=== PATIENT | female | born 1970 | race Hispanic/Latino ===

== ENCOUNTER 2018-12-14 11:47 | Emergency (ER) | payer SELFPAY | END 2018-12-14 12:23 | disposition home or self-care (01) | LOC: EDH 11:47 | DX: K14.8 Other diseases of tongue (principal); E07.9 Disorder of thyroid, unspecified | CPT/HCPCS: 99281 ==

== ENCOUNTER → 2025-01-20 | Outpatient (CLI) | payer OTHER ==
--- NOTE | 2025-01-20 15:38 | HMCIMG ---
LUMBAR SPINE RADIOGRAPHS - 2-3 VIEWS INDICATION: Flow back pain COMPARISON: None FINDINGS: AP, lateral, and coned-down lateral views. Normal lordotic curvature of the lumbar spine is maintained. Five nonrib-bearing lumbar vertebral bodies are noted. No acute fracture or subluxation identified. Vertebral body heights are well-maintained. Disc spaces are well-preserved. Multilevel mild anterior endplate osteophytic spurring. IMPRESSION: No fracture or subluxation identified.
--- NOTE | 2025-01-20 15:39 | HMCIMG ---
LEFT SHOULDER RADIOGRAPHS - 2-3 VIEWS INDICATION: Pain COMPARISON: None FINDINGS: No evidence for acute fracture or dislocation. Acromioclavicular and glenohumeral alignments are well maintained. Visible portions of the left clavicle are intact. Mild lateral arch outlet narrowing. IMPRESSION: Possible mild external impingement.
== END | disposition home or self-care (01) ==
LOC: RAH 14:38
PROVIDERS: ATTEND Internal Medicine
DX: M25.78 Osteophyte, vertebrae (principal); M25.512 Pain in left shoulder; M54.50 Low back pain, unspecified; M47.816 Spondylosis without myelopathy or radiculopathy, lumbar region
CPT/HCPCS: 72100; 73030

== ENCOUNTER 2025-05-17 10:04 | Emergency (ER) | payer BC, MEDICAID ==
[~2025-05-17] VITALS: Ht 157.5 cm; Wt 72.6 kg
--- NOTE | 2025-05-17 10:14 | ERN ---
ED Note History of Present Illness Stated Complaint: CHEST PAIN Chief Complaint: Chest Pain Time Seen by MD: 10:06 Dictation: PATIENT IS A 54-YEAR-OLD FEMALE HERE WITH LEFT POSTERIOR SHOULDER PAIN THAT SHE HAS HAD FOR QUITE A LONG TIME. THAT RADIATES TO HER CHEST. SHE HAS HAD NO SHORTNESS A BREATH NO JAW PAIN NO ARM PAIN NO NAUSEA NO VOMITING. HAS BEEN HERE ONCE BEFORE FOR THE SAME COMPLAINT AND WAS WORKED UP. SHE DID NOT GO SEE HER PRIMARY CARE Allergies: Coded Allergies: No Known Drug Allergies (Unverified Allergy, Unknown, 05/17/25) Past Medical History History: Not Applicable RN Note Reviewed/Agreed w/PFSH: Yes Review of System Dictation CONSTITUTIONAL: NEGATIVE EXCEPT FOR HPI HEAD/FACE: NEGATIVE EXCEPT FOR HPI EENT: NEGATIVE EXCEPT FOR HPI RESPIRATORY: NEGATIVE EXCEPT FOR HPI GASTROINTESTINAL/ABDOMINAL: NEGATIVE EXCEPT FOR HPI GENITOURINARY: NEGATIVE EXCEPT FOR HPI MUSCULOSKELETAL: NEGATIVE EXCEPT FOR HPI LEFT POSTERIOR SHOULDER PAIN THAT RADIATES TO CHEST INTEGUMENTARY: NEGATIVE EXCEPT FOR HPI NEUROLOGICAL/PSYCH: NEGATIVE EXCEPT FOR HPI HEMATOLOGIC/LYMPHATIC: NEGATIVE EXCEPT FOR HPI ALL SYSTEMS NEGATIVE, EXCEPT NOTED ABOVE. 13 POINT REVIEW OF SYSTEMS ASSESSED AND ALL NEGATIVE EXCEPT FOR ABOVE. Initial Vital Sign VS Vital Signs Date Time Temp Pulse Resp B/P (MAP) Pulse Ox O2 Delivery O2 Flow Rate FiO2 05/17/25 10:13 97.2 78 18 144/83 97 Room Air 0 Physical Exam Dictation VITAL SIGNS REVIEWED GENERAL APPEARANCE: ALERT, ORIENTED X 3, MILD ACUTE DISTRESS, WELL DEVELOPED, NOURISHED. HEAD AND FACE: NON-TRAUMATIC. EYES: PERRL, PINK CONJUNCTIVAS, EYELID NO TRAUMA, ANTERIOR CHAMBER WITH ARCUS SENILIS. EARS: PINNAS INTACT AND NO SIGNS OF TRAUMA OR ERYTHEMA EAR CANALS CLEAR AND NO DISCHARGE TM NO ERYTHEMA NOSE: NO DISCHARGE, NO BLEEDING. OROPHARYNX: MOUTH NORMAL, TONGUE PINK, PHARYNX CLEAR,NO ERYTHEMA, TONSILS NO EXUDATES, NO ABSCESSES NOTED, MUCOUS MEMBRANE MOIST NECK: SUPPLE, NON-TENDER, NO THYROMEGALY, NO MASSES, NO JVD, NO BRUITS BREAST:DEFERRED CHEST:NO TENDERNESS, NO CREPITUS, NO PARADOXICAL MOVEMENT, NO RETRACTIONS LUNGS:CLEAR, WELL-VENTILATED, SYMMETRIC, NO RALES, NO WHEEZING, NO RHONCHI, NO STRIDOR, GOOD BREATH SOUNDS BILATERALLY HEART: REGULAR RATE, REGULAR RHYTHM, NO MURMUR, NO GALLOPS VASCULAR: NO PERIPHERAL EDEMA, ABDOMEN: SOFT, POSITIVE BOWEL SOUNDS, NONDISTENDED, NO GUARDING, NONTENDER, NO REBOUND, NO MASSES NO HEPATOMEGALY, NO SPLENOMEGALY, NO JOYA'S SIGN, NO HERNIAS. RECTAL: DEFERRED GENITAL: DEFERRED NEUROLOGICAL: NORMAL SPEECH, MOTOR FUNCTION INTACT, SENSORY FUNCTION INTACT MUSCULOSKELETAL: NECK NONTENDER, FULL RANGE OF MOTION, BACK NONTENDER, FULL RANGE OF MOTION, EXTREMITIES: POSTERIOR LEFT SHOULDER PAIN TENDERNESS WITH PALPATION WITH DECREASED RANGE OF MOTION SECONDARY TO PAIN. DISTAL NEUROVASCULAR CMS INTACT. SKIN: COLOR PINK, DRY, NO TURGOR, NO RASH, NO LACERATIONS, NO ABRASIONS, NO CONTUSIONS. LYMPHATIC: DEFERRED Results (Laboratory/Radiology) Laboratory/Radiology Laboratory Tests Test 05/17/25 10:22 White Blood Count 4.5 K/uL (4.8-10.8) L Red Blood Count 4.56 MIL/uL (4.00-5.50) Hemoglobin 13.4 g/dL (12.0-16.0) Hematocrit 40.5 % (36-48) Mean Corpuscular Volume 88.8 fL (79-99) Mean Corpuscular Hemoglobin 29.4 pg (27.0-33.0) Mean Corpuscular Hemoglobin Concent 33.1 g/dL (32.0-36.0) Red Cell Distribution Width 13.6 % (11.0-15.5) Platelet Count 151 K/uL (130-400) Mean Platelet Volume 12.6 fL (7.5-10.5) H Immature Granulocyte % (Auto) 0.2 % (0-1) Neutrophils (%) (Auto) 53.2 % (40.0-77.0) Lymphocytes (%) (Auto) 38.4 % (21.0-51.0) Monocytes (%) (Auto) 6.2 % (3.0-13.0) Eosinophils (%) (Auto) 1.8 % (0.0-8.0) Basophils (%) (Auto) 0.2 % (0.0-5.0) Neutrophils # (Auto) 2.4 K/uL (1.8-7.7) Lymphocytes # (Auto) 1.7 K/uL (1.0-4.8) Monocytes # (Auto) 0.3 K/uL (0.1-1.0) Eosinophils # (Auto) 0.08 K/uL (0.00-0.70) Basophils # (Auto) 0.01 K/uL (0.00-0.20) Absolute Immature Granulocyte (auto 0.01 K/uL (0-1) Nucleated Red Blood Cells 0.0 % (0.0-0.19) Sodium Level 144 mmol/L (136-145) Potassium Level 3.8 mmol/L (3.5-5.1) Chloride Level 105 mmol/L (101-111) Carbon Dioxide Level 26 mmol/L (21-32) Blood Urea Nitrogen 12 mg/dL (7-18) Creatinine 0.5 mg/dL (0.5-1.0) Glomerular Filtration Rate Calc 111 mL/min (>90) Random Glucose 111 mg/dL (70-105) H Total Calcium 9.2 mg/dL (8.5-10.1) Troponin I High Sensitivity < 4 ng/L (4-50) L Labs Reviewed?: Yes EKG Comment: EKG NORMAL SINUS RHYTHM/HEART RATE 77/AXIS NORMAL/NO ECTOPY ED Course ED Course Orders Procedure Category Date Status Time 12 Lead Ekg Tracing- EKG 05/17/25 Logged Technical 10:11 Ketorolac 60mg/2ml PHA 05/17/25 Complete (Toradol 60mg/2ml) 10:30 Cyclobenzaprine Hcl PHA 05/17/25 Complete (Cyclobenzaprine Hcl 10:30 Cbc With Differential LAB 05/17/25 Complete 10:26 Basic Metabolic Panel LAB 05/17/25 Complete 10:26 Troponin I High LAB 05/17/25 Complete Sensitivity 10:26 Current Medications Medications (Trade) Dose Ordered Sig/Yumi Route PRN Reason Start Time Stop Time Status Last Admin Dose Admin Cyclobenzaprine HCl (Cyclobenzaprine HCl) 10 mg ONCE ONCE PO 05/17/25 10:30 05/17/25 10:31 DC Ketorolac Tromethamine (toRADol 60MG/ 2ML) 60 mg ONCE ONCE IM 05/17/25 10:30 05/17/25 10:31 DC Vital Signs Date Time Temp Pulse Resp B/P (MAP) Pulse Ox O2 Delivery O2 Flow Rate FiO2 05/17/25 10:13 97.2 78 18 144/83 97 Room Air 0 1055/NO IMAGING INDICATED PATIENT WAS ALREADY IMAGED ON 01/20/2025 AND IMPINGEMENT WAS FOUND TO THE LEFT SHOULDER. SHE HAS NOT FOLLOWED UP WITH HER PRIMARY CARE DOCTOR SINCE HER LAST ER VISIT. CARDIAC WORKUP UNREMARKABLE HEART Score Response (Comments) Value History: Low suspicion (0) 0 Age: 45-65yrs (+1) 1 Risk Factors: 1-2 risk factors (+1) 1 Initial Troponin: Normal limit (0) 0 Total 2 Medical Decision Making MDM MEDICAL DECISION-MAKING BASED ON CARDIAC WORKUP. PATIENT HAS ALREADY BEEN IMAGED ON 01/20/2025 FOR LEFT SHOULDER PAIN THAT IS CHRONIC, X-RAY DEMONSTRATES IMPINGEMENT AND PATIENT STATES SHE IS NOT FOLLOW UP WITH HER DOCTOR OR ORTHOPEDIC SINCE THE LAST VISIT TO THE EMERGENCY ROOM. WE WILL DISCHARGE PATIENT HOME WITH IBUPROFEN AND SHE WILL BE PROVIDED THE NAME OF DR. PALOMARES DX & DISP Disposition: Discharge Departure Impression: Primary Impression: Impingement of left shoulder Condition: Stable Scripts Ibuprofen (Ibuprofen 800 mg Tab) 800 Mg Tab 800 MG PO Q8H PRN for fever or pain, #30 TAB 0 Refills Prov: BANDAR RAIN NP 05/17/25 Additional Instructions: FOLLOW-UP WITH PRIMARY CARE PROVIDER IN 1 TO 2 DAYS. TAKE MEDICATIONS DIRECTED HERE IN THE EMERGENCY ROOM. OKAY TO CONTINUE HOME MEDICATIONS UNLESS OTHERWISE DISCUSSED DURING YOUR VISIT IN THE EMERGENCY ROOM TODAY. RETURN TO YOUR NEAREST EMERGENCY ROOM IF SYMPTOMS WORSEN OR IF THERE IS NO IMPROVEMENT. CALL 911 IF YOU NEED IMMEDIATE ASSISTANCE. TAKE TYLENOL OR MOTRIN [id number] NEEDED AND IF NO CONTRAINDICATIONS ARE PRESENT. INCREASE ORAL HYDRATION. A WOUND CULTURE OR URINE CULTURE WAS ORDERED HERE IN THE EMERGENCY ROOM DEPARTMENT PLEASE FOLLOW-UP WITH PRIMARY CARE PROVIDER AND ADVISE THEM TO GET REPEAT PORTS FROM OUR FACILITY. IF YOU HAD ANY YOLI WRAP/SPLINTS THAT WERE APPLIED HERE, PLEASE DO NOT REMOVE THEM UNTIL YOU SEE YOUR PRIMARY CARE OR SPECIALTY. TAKE IBUPROFEN EVERY 8 HOURS WITH FOOD FOR THE NEXT THREE DAYS. FOLLOW UP WITH ORTHOPEDIC SURGEON, CALL FOR AN APPOINTMENT TOMORROW. Referrals: RAMONITA ESPINOZA MD (PCP) JELANI HSIEH MD Time of Disposition: 10:58 I have reviewed the case, and I agree with, Diagnosis and Plan BANDAR RAIN NP May 17, 2025 10:14
[2025-05-17 10:35] LABS: BASOPHILS # (AUTO) 0.01 K/uL (0.00-0.20); BASOPHILS % (AUTO) 0.2 % (0.0-5.0); EOSINOPHILS # (AUTO) 0.08 K/uL (0.00-0.70); EOSINOPHILS % (AUTO) 1.8 % (0.0-8.0); HEMATOCRIT 40.5 % (36-48); IMMATURE GRANULOCYTE ABSOLUTE 0.01 K/uL (0-1); LYMPHOCYTES # (AUTO) 1.7 K/uL (1.0-4.8); LYMPHOCYTES % (AUTO) 38.4 % (21.0-51.0); MEAN CORPUSCULAR HEMOGLOBIN 29.4 pg (27.0-33.0); MEAN CORPUSCULAR HGB CONC 33.1 g/dL (32.0-36.0); MEAN CORPUSCULAR VOLUME 88.8 fL (79-99); MONOCYTES # (AUTO) 0.3 K/uL (0.1-1.0); MONOCYTES % (AUTO) 6.2 % (3.0-13.0); NEUTROPHILS # (AUTO) 2.4 K/uL (1.8-7.7); NEUTROPHILS % (AUTO) 53.2 % (40.0-77.0); PLATELET COUNT (AUTO) 151 K/uL (130-400); RED BLOOD CELL COUNT(AUTO) 4.56 MIL/uL (4.00-5.50); RED CELL DISTRIBUTION WIDTH 13.6 % (11.0-15.5); WHITE BLOOD COUNT (AUTO) 4.5 K/uL (4.8-10.8)
[2025-05-17 10:43] LABS: CREATININE 0.5 mg/dL (0.5-1.0); POTASSIUM 3.8 mmol/L (3.5-5.1)
[2025-05-17] MEDS ORDERED: IBUP-2077 PO (10:59)
[2025-05-17 11:11] VITALS: BP 138/71; PULSE 84; RESP 16; TEMP 98.1; O2SAT 98
[2025-05-17] MEDS: CYCLOBENZAPRINE HCL 10 MG TABLET PO ONE (11:18)
[2025-05-17] MEDS: ketOROlac 60 MG VIAL (30MG/ML) IM ONE (11:18)
--- NOTE | 2025-05-17 15:50 | EKG ---
[facility] Test Date: 2025-05-17 Test Time: 10:09:32 Pat Name: ALYSA VALLES Department: ED Room: Gender: F Tipple Boss: [birth year] : [id number] Requested By: BANDAR RAIN Order Number: [id number] Reading MD: Christiano Rod Measurements Intervals [place] Rate: 77 P: 13 VA: 168 QRS: -3 QRSD: 81 T: 4 QT: 381 QTc: 430 Interpretive Statements Sinus rhythm Low voltage, precordial leads No previous ECG available for comparison Electronically Signed On 05-17-2025 17:12:25 CDT by Christiano Rod Please click the below link to view image of tracing.
== END 2025-05-17 11:29 | disposition home or self-care (01) ==
LOC: EDH 10:04
DX: M25.812 Other specified joint disorders, left shoulder (principal)
CPT/HCPCS: 99284; 84484; 80048; 85025; 36415; 96372; 93005; J1885